=== PATIENT | female | born 1960 | race Caucasian/White ===

== ENCOUNTER → 2024-03-04 10:12 | Outpatient (REF) | payer OTHER, SELFPAY | LOC: HWRAD 10:12 | PROVIDERS: ATTENDING PHYSICIAN Family Medicine | DX: M25.561 Pain in right knee (principal); M25.562 Pain in left knee | CPT/HCPCS: 73564 ==

== ENCOUNTER → 2024-07-08 13:05 | Outpatient (REF) | payer OTHER, SELFPAY | LOC: HWRAD 13:05 | PROVIDERS: ATTENDING PHYSICIAN Orthopaedic Surgery; FAMILY PHYSICIAN Family Medicine | DX: M79.641 Pain in right hand (principal) | CPT/HCPCS: 73130 ==